=== PATIENT | male | born 1950 | race African-American/Black ===

== ENCOUNTER 2019-07-08 11:31 | Outpatient (CLI) | payer MEDICARE, SELFPAY ==
--- NOTE | ~2019-07-08 | CT_ITS ---
EXAMINATION: CT abdomen pelvis w con EXAM DATE: 07/08/2019 13:03 INDICATION: Right-sided abdominal pain. Right upper quadrant, right lower quadrant pain. TECHNIQUE: Spiral CT of the abdomen and pelvis was performed following intravenous injection of 100 m L Omnipaque 350. Axial, coronal and sagittal images were reviewed. The dose-length product (DLP) fo r this examination was 399.11 mGy-cm. The exposure was tailored according to patient size (auto mA e xposure control), and iterative reconstruction (ASIR) was used as additional dose reduction technique . There is no prior study for comparison. FINDINGS: There is moderate amount of nonspecific fat stranding superficial to the right lateral abdo lisa wall. There is a left adrenal gland lesion measuring 1.5 cm, probably an adenoma. Spleen, righ t adrenal gland, pancreas, liver are unremarkable. Gallbladder is unremarkable. No biliary obstruct ion. Portal and splenic veins are patent. Kidneys enhance symmetrically. There is no hydronephrosi s. There is a 3 mm left mid calyceal stone. There are several similar sized right calyceal stones. T he prostate is unremarkable. The bladder is unremarkable. There is no retroperitoneal or pelvic lym phadenopathy. Small umbilical fat-containing hernia. The appendix is normal. There is moderate scattered colonic diverticulosis. There is no adjacent inf lammatory change to suggest diverticulitis. The stomach and small bowel are unremarkable. There is e xpected amount of colonic stool. No free intraperitoneal gas. The heart is normal in size. There are no pericardial or pleural effusions. Small to moderate right pleural effusion with right basila r subsegmental atelectasis. There are no osteoblastic or osteolytic lesions identified. IMPRESSION: 1. Right lateral abdominal wall subcutaneous edema. Nonspecific. 2. Moderate scattered colonic diverticulosis. 3. Bilateral nephrolithiasis. 4. Left adrenal lesion probably adenoma. 5. Small to moderate right pleural effusion, adjacent subsegmental atelectasis. Reviewed, dictated and finalized at location B. 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 Right lateral abdominal wall subcutaneous edema. Nonspecific. 2. Moderate scattered colonic diverticulosis. 3. Bilateral nephrolithiasis. 4. Left adrenal lesion probably adenoma. 5. Small to moderate right pleural effusion, adjacent subsegmental atelectasis .
[2019-07-08 12:02] LABS: Hematocrit 40.8 % (42.0-52.0); Mean Corpuscular HGB Conc 31.9 g/dl (32-36); Mean Corpuscular Hemoglobin 30.3 pg (26-34); Mean Corpuscular Volume 95.1 fl (80-100); Mean Platelet Volume 10.2 fl (7.4-10.4); Platelet Count Result 284 k/mm3 (150-375); Red Blood Count 4.29 M/mm3 (4.6-6.20); Red Cell Distribution Width 13.3 % (11.5-14.5)
[2019-07-08 12:16] LABS: Alanine Aminotransferase 14 U/L (4-50); Albumin Level 4.2 g/dL (3.5-5.1); Alkaline Phosphatase 105 U/L (38-126); Aspartate Amino Transferase 21 U/L (17-59); Bilirubin,Total 0.6 mg/dL (0.2-1.3); Blood Urea Nitrogen 15 mg/dL (9-20); Calcium 9.4 mg/dL (8.4-10.2); Carbon Dioxide 31 mmol/L (22-30); Chloride 101 mmol/L (98-107); Estimated Glomerular Filt Rate > 60; Glucose 101 mg/dL (75-110); Potassium 4.6 mmol/L (3.4-5.0); Sodium 139 mmol/L (137-145)
[2019-07-08 12:55] LABS: Blood Urea Nitrogen 14 mg/dL (8-26); Estimated Glomerular Filt Rate > 60
== END 2019-07-08 11:32 | disposition home or self-care (01) ==
PROVIDERS: PCP Family Medicine; Visit Provider Family Medicine
DX: R10.9 Unspecified abdominal pain (principal); M79.89 Other specified soft tissue disorders; K57.90 Diverticulosis of intestine, part unspecified, without perforation or abscess without bleeding; N20.0 Calculus of kidney; E27.9 Disorder of adrenal gland, unspecified; J90 Pleural effusion, not elsewhere classified
CPT/HCPCS: 36415; 74177; 80053; 85027; Q9967

== ENCOUNTER 2020-12-16 13:33 | Outpatient (CLI) | payer MEDICARE, SELFPAY ==
--- NOTE | ~2020-12-16 | CT_ITS ---
EXAMINATION: CT lung screening DATE: 12/16/2020 13:58 INDICATION: Personal history of tobacco dependence, prior smoker with 30 pack year history TECHNIQUE: Computed tomography (CT) of the chest was performed without intravenous contrast. The dose -length product (DLP) was 90.30 mGy-cm. Automated exposure control and iterative reconstruction techn [employer] were employed. COMPARISON: 07/08/2019 FINDINGS: There is mild emphysema. No suspicious pulmonary nodules are identified. The lungs are free of acute opacities. There is no pleural effusion or pneumothorax. No pathologically enlarged thoraci c lymph nodes are identified. The heart size is normal. 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 There is a chronic calcified cystic area adjacent to the cardiac apex without signific ant change. There is a stable adenoma of the left adrenal gland. Nonobstructing right nephrolithiasis is noted. IMPRESSION: 1. Lung-RADS category 1: Negative. Continue annual screening with noncontrast low-dose chest CT in 12 months. Reviewed, dictated and finalized at location B. IMPRESSION: 1. Lung-RADS category 1: Negative. Continue annual screening with noncontrast l ow-dose chest CT in 12 months.
== END 2020-12-16 13:34 | disposition home or self-care (01) ==
LOC: ANHIMG 13:39
PROVIDERS: PCP Family Medicine; Visit Provider Nurse Practitioner Family
DX: Z12.2 Encounter for screening for malignant neoplasm of respiratory organs (principal); Z87.891 Personal history of nicotine dependence
CPT/HCPCS: 71271

== ENCOUNTER 2021-02-10 09:20 | Outpatient (CLI) | payer MEDICARE, SELFPAY ==
--- NOTE | ~2021-02-10 | US_ITS ---
EXAMINATION: US aorta [facility] DATE: 02/10/2021 09:58 INDICATION: Screening for abdominal aortic aneurysm. TECHNIQUE: Grayscale, color Doppler, and pulsed Doppler images of the aorta and common iliac arteries were obtained. COMPARISON: 07/08/2019 FINDINGS: The proximal aorta measures 2.1 cm AP diameter. The mid aorta measures 1.8 cm. The distal aorta measu res 1.8 cm. The right common iliac artery measures 1.2 cm. The left common iliac artery measures 1.4 cm. The visualized proximal to mid inferior vena cava is normal. IMPRESSION: 1. Normal caliber abdominal aorta. Reviewed, dictated and finalized at location A.
== END 2021-02-10 09:21 | disposition home or self-care (01) ==
LOC: ANHIMG 09:23
PROVIDERS: PCP Family Medicine; Visit Provider Family Medicine
DX: Z13.6 Encounter for screening for cardiovascular disorders (principal); F17.210 Nicotine dependence, cigarettes, uncomplicated
CPT/HCPCS: 76706

== ENCOUNTER 2021-10-13 13:45 | Outpatient (CLI) | payer MEDICARE, SELFPAY ==
--- NOTE | ~2021-10-13 | XR_ITS ---
XR knee LT min 4V 10/13/2021 14:08 INDICATION: Left knee pain PROCEDURE: 4 views left knee COMPARISON: No prior studies for comparison. FINDINGS: Fracture, dislocation or subluxation is not identified. No significant joint effusion. The soft tissues appear within normal limits. No foreign bodies are i dentified. IMPRESSION: 1: NO ACUTE BONE OR JOINT ABNORMALITY IDENTIFIED. Reviewed, dictated and finalized at location B.
== END 2021-10-13 13:46 | disposition home or self-care (01) ==
PROVIDERS: PCP Family Medicine; Visit Provider Physician Assistant
DX: M25.562 Pain in left knee (principal)
CPT/HCPCS: 73564

== ENCOUNTER 2024-04-09 05:45 | Emergency (ER) | payer MEDICARE, SELFPAY ==
[2024-04-09] VITALS (13 sets, daily range): BP systolic 149–166; BP diastolic 75–101; PULSE 20–104; RESP 16–18; TEMP 36.6; O2SAT 91–100
--- NOTE | ~2024-04-09 | XR_ITS ---
Clinical Indication: Shortness of breath PA and lateral views of the chest: Comparison: 05/29/2016 Findings: The lungs are clear, without evidence of focal consolidation or pleural effusion. Cardiome diastinal silhouette is within normal limits. Bones and soft tissues are unremarkable. Impression: Clear lungs. Possible COPD. Reviewed, dictated and finalized at location M. 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 Possible COPD.
--- NOTE | 2024-04-09 05:46 | ECG_ITS ---
Test Date: 2024-04-09 05:54:37 Measurements Intervals Ringle Rate: 100 P: 76 CT: 135 QRS: -48 QRSD: 88 T: 78 QT: 359 QTc: 465 Interpretive Statements SINUS TACHYCARDIA LEFT AXIS DEVIATION NONSPECIFIC ST & T-WAVE ABNORMALITY- ANTEROLAT/HIGH LAT LEADS BASELINE ARTIFACT- AVR, AVL, AVF, V4-V6 BORDERLINE ECG No previous ECG available for comparison Electronically Signed On 04-09-2024 07:51:16 STOCK CONTROL CLERK by Bryan Velasco D.O.
[2024-04-09 06:14] LABS: Basophils Absolute Auto 0.1 K/mm3 (0.0-0.1); Basophils Percent Auto 1.2 % (0.2-1.2); Eosinophils Absolute Auto 0.6 K/mm3 (0-0.3); Eosinophils Percent Auto 9.7 % (0-4.4); Hematocrit 41.1 % (42.0-52.0); Hemoglobin 14.1 g/dL (14.0-18.0); Immature Granulocyte Absolute 0.01 K/mm3 (0.00-0.031); Immature Granulocyte Percent A 0.2 % (0-0.5); Lymphocytes Absolute Auto 1.81 K/mm3 (0.9-3.2); Lymphocytes Percent Auto 31.4 % (18.3-44.2); Mean Corpuscular HGB Conc 34.3 g/dl (32-36); Mean Corpuscular Hemoglobin 32.6 pg (26-34); Mean Corpuscular Volume 95.1 fl (80-100); Mean Platelet Volume 10.5 fl (7.4-10.4); Monocytes Absolute Auto 0.4 K/mm3 (0.1-0.6); Monocytes Percent Auto 7.6 % (2.6-8.5); Neutrophils Absolute Auto 2.9 K/mm3 (1.3-6.7); Neutrophils Percent Auto 49.9 % (45.5-73.1); Platelet Count Result 238 k/mm3 (150-375); Red Blood Count 4.32 M/mm3 (4.6-6.20); Red Cell Distribution Width 13.3 % (11.5-14.5); White Blood Count 5.8 K/mm3 (4.5-10.0)
[2024-04-09 06:32] LABS: Alanine Aminotransferase 24 U/L (6-50); Albumin Level 4.5 g/dL (3.5-5.1); Alkaline Phosphatase 111 U/L (38-126); Anion Gap 10 mmol/L (4-12); Aspartate Amino Transferase 32 U/L (17-59); Bilirubin,Total 0.7 mg/dL (0.2-1.3); Blood Urea Nitrogen 19 mg/dL (9-20); Calcium 9.6 mg/dL (8.4-10.2); Carbon Dioxide 25 mmol/L (22-30); Chloride 105 mmol/L (98-107); Estimated CRCL calculation 74 ml/min; Estimated Glomerular Filt Rate > 60; Glucose 111 mg/dL (65-110); Potassium 4.1 mmol/L (3.4-5.0); Sodium 140 mmol/L (137-145)
[2024-04-09] MEDS: IPRATROPIUM 0.5 MG/ALBUTEROL SULFATE 2.5 MG AMPUL.NEB 3 ML INHALATION (06:33)
--- NOTE | 2024-04-09 06:59 | ED_ITS ---
HPI - SOB/Dyspnea General Chief Complaint: Shortness of Breath/Dyspnea Stated Complaint: I cannot breath; 4 days Time Seen by Provider: 04/09/24 06:56 Source: patient and family ( ) Mode of arrival: ambulatory Limitations: no limitations History of Present Illness HPI Narrative: patient presents with report of increasing shortness of breath over the past 4 days. He has had a cough productive of some mucus that he feels draining. His chest feels tight. No fevers or chills and otherwise no miguel chest pain. While living in [place] for a few years his primary care physician there told him that he had mild COPD and had prescribed breads treat. Otherwise patient is not on supplemental oxygen at home. Few months ago, he had difficulty breathing but this was felt to be secondary to COVID. No prior BiPAP for intubation. His /bed partner notes that his breathing seems to be worsening. They to go home her COVID test that was negative and a been trying Mucinex. He ran out of his bridge tree and did not have any more refills. He is set to reestablish with his previous primary care physician here, Dr. Sonido Rinaldi to get both a refill of his press Treanda referral to a timber management assistant and that appointment is coming up on Saturday. Denies loss of appetite. Related Data Allergies Allergy/AdvReac Type Severity Reaction Status Date / Time iodine Allergy Unknown Nausea and Verified 10/01/23 14:33 Vomiting shellfish derived Allergy Unknown Nausea and Verified 10/01/23 14:33 Vomiting SHELLFISH Allergy Mild Nausea and Uncoded 10/01/23 14:33 Vomiting PMFSH Past Medical History Medical History Allergic rhinitis BPH loc w/o ur obs/LUTS COPD (chronic obstructive pulmonary disease) Essential hypertension Positive PPD Pure hypercholesterolemia Surgical History Surgical History History of sinus surgery Status post hernia repair Family History Family History Mother Hypertension Sibling Family history of diabetes mellitus in first degree relative Social History Social History Social History: enjoys playing golf Years smoked: 30 Smoking status: Current every day smoker Tobacco type: cigarettes Second hand tobacco smoke exposure: Yes Alcohol intake: never Substance use: never Substance use type: does not use Living arrangements: with family Additional living arrangements comments: Lived in [place] for several years before moving back August 2023 Occupation/Education: occupation 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 HEAD: Normocephalic, atraumatic. EYES: Non injected, non icteric ENT: Nares clear, no rhinorrhea or epistaxis. NECK: Supple. CHEST: Coarse bilateral inspiratory wheezes but without stridor. Good air movement otherwise. HEART: Mildly Tachycardic rate and rhythm. . ABDOMEN: Soft, nondistended. EXTREMITIES: Normal range of motion. No bilateral lower extremity edema. SKIN: Warm, dry, no rash. NEURO: No focal deficits. Alert and oriented x3. PSYCH: Normal mood and affect. Course Vital Signs Vital signs: Vital Signs Pulse Rate 104 H 04/09/24 05:48 Respiratory Rate 16 04/09/24 05:48 Blood Pressure 159/101 H 04/09/24 05:48 Pulse Oximetry 91 04/09/24 05:48 Oxygen Delivery Room Air 04/09/24 05:48 Temperature 98 F 04/09/24 07:35 Pulse Rate 81 04/09/24 10:07 Respiratory Rate 18 04/09/24 10:07 Blood Pressure 151/79 H 04/09/24 10:07 Pulse Oximetry 98 04/09/24 10:07 Oxygen Delivery Room Air 04/09/24 07:00 MDM - SOB/Dyspnea MDM Narrative Medical decision making narrative: Patient presents with increasing shortness of breath over the past several days. He had been previously told that he had mild COPD. In the emergency department he is afebrile with vital signs notable for initial tachycardia and hypertension. The tachycardia resolves. he is also initially listed as hypoxic but then with resolution. Will initiate COPD treatment with supplemental O2 available PRN. Patient is reassessed at approximately 8:10 a.m.. He states his breathing is improved. On auscultation, he has good aeration with both inspiratory and expiratory wheezes and coarse breath sounds. Not tachypneic and otherwise resting comfortably. Another albuterol nebulized treatment ordered. BAP-65 Score for Acute Exacerbation of COPD (predicts mortality in acute COPD exacerbation) BUN >/=25 mg/dL (No 0, Yes +1): 0 AMS (No 0, Yes +1):0 Pulse >/=109 beats/min (No 0, Yes +1):0 Age, years: 41-64 versus >/= 65: >65 Result: Class II, BAP 0, Routine management of COPD exacerbation. 1% in hospital mortality. 0.2% requiring intubation within 48 hours. Dimer normal so will not pursue further imaging to assess for pulmonary embolism. Overall, it appears that his pulmonary status is well controlled. Will defer prescribing Breztri to patient's PCP as he is set to see him in 4 days. Given the cardinal change in typically having no cough at rest but now currently having 1, will also add antibiotic in addition to the course of steroids and a refill of albuterol inhaler. First dose given in the emergency department. Differential Diagnosis Differential diagnosis: Likely acute exacerbation of chronic obstructive airways disease, congestive heart failure, community acquired pneumonia, asthma with exacerbation, pulmonary embolism and other ( acute viral syndrome) Lab Data Attestation: I reviewed the patient's lab results. 04/09/24 05:57 04/09/24 05:57 Labs: Lab Results 04/09/24 04/09/24 04/09/24 Range/Units 05:57 05:57 06:34 WBC 5.8 (4.5-10.0) K/mm3 RBC 4.32 L (4.6-6.20) M/mm3 Hgb 14.1 (14.0-18.0) g/dL Hct 41.1 L (42.0-52.0) % MCV 95.1 (80-100) fl MCH 32.6 (26-34) pg MCHC 34.3 (32-36) g/dl RDW 13.3 (11.5-14.5) % Plt Count 238 (150-375) k/mm3 MPV 10.5 H (7.4-10.4) fl Immature Gran % (Auto) 0.2 (0-0.5) % Neut % (Auto) 49.9 (45.5-73.1) % Lymph % (Auto) 31.4 (18.3-44.2) % Rawlins % (Auto) 7.6 (2.6-8.5) % Eos % (Auto) 9.7 H (0-4.4) % Baso % (Auto) 1.2 (0.2-1.2) % Lymph # (Auto) 1.81 (0.9-3.2) K/mm3 Rawlins # (Auto) 0.4 (0.1-0.6) K/mm3 Eos # (Auto) 0.6 H (0-0.3) K/mm3 Baso # (Auto) 0.1 (0.0-0.1) K/mm3 Abs Immat Gran (auto) 0.01 (0.00-0.031) K/mm3 Absolute Neuts (auto) 2.9 (1.3-6.7) K/mm3 Absolute Nucleated RBC 0.000 (0.0-0.012) K/mm3 Nucleated RBC % 0.0 (0.0-0.2) % D-Dimer 0.34 (<0.48) ug/mL Sodium 140 (137-145) mmol/L Potassium 4.1 (3.4-5.0) mmol/L Chloride 105 (98-107) mmol/L Carbon Dioxide 25 (22-30) mmol/L Anion Gap 10 (4-12) mmol/L BUN 19 (9-20) mg/dL Creatinine 0.80 (0.7-1.3) mg/dL Estim Creat Clear Calc 74 ml/min Estimated GFR > 60 (59 - ) Glucose 111 H (65-110) mg/dL Calcium 9.6 (8.4-10.2) mg/dL Magnesium 1.8 Cancelled (1.6-2.3) mg/dL Total Bilirubin 0.7 (0.2-1.3) mg/dL AST 32 (17-59) U/L ALT 24 (6-50) U/L Alkaline Phosphatase 111 (38-126) U/L NT-Pro-B Natriuret Pep < 20 (19.9-100) pg/mL Total Protein 9.0 H (6.3-8.2) g/dL Albumin 4.5 (3.5-5.1) g/dL Influenza A (RT-PCR) Negative (Negative) Influenza B (RT-PCR) Negative (Negative) RSV (RT-PCR) Negative (Negative) SARS-CoV-2 RNA (RT-PCR) Negative (Negative) ABG Data ABG results: 04/09/24 07:25 Puncture Site Right radial ABG pH 7.420 ABG pCO2 37.7 ABG pO2 60.2 L ABG PO2/FiO2 Ratio 2.87 ABG HCO3 23.9 ABG O2 Saturation 91.7 L ABG O2 Content 18.3 ABG Base Excess -0.3 A-a Gradient 44.4 Oxyhemoglobin 90.4 Total Hemoglobin 14.4 O2 Delivery Device Not Reportable O2 Liters/Min Not Reportable FiO2 21 pH 7.42, pCO2 37.7, PO2 60.2, HC03 23.9 Attestation: I personally reviewed and interpreted this ABG as follows: Interpretation: chronic respiratory alkalosis with secondary metabolic alkalosis Imaging Data Radiologist's impression: Impressions Chest X-Ray 04/09/24 06:44 Impression: Clear lungs. Possible COPD. ECG Data EKG #1: Attestation: I personally reviewed and interpreted this ECG as follows: ECG completion date: 04/09/24 ECG completion time: 05:54 Interpretation: Sinus tachycardia at a rate of 100 beats per minute. IL interval 135. QRS 88. QT/QTC 359/416. Left axis deviation (QRS is positive with dominant R wave in Lead I; QRS is negative with dominant S wave in leads II, III, and aVF). Slight ST depressions versus upslurring throughout inferior leads as well as precordial leads V3 through V6. good R-wave progression across the precordial leads. Discharge Plan Discharge Clinical Impression: COPD exacerbation Patient Disposition: Home, Self-Care Condition: Stable Instructions: Antibiotic Form, COPD (Chronic Obstructive Pulmonary Disease) (DC) Additional Instructions: Keep your already scheduled upcoming appointment with primary care physician Dr. Rinaldi. If there are any complications or issues in obtaining a referral to a timber management assistant from him, the contact information for 1 is listed below. take a combination of albuterol inhaler, steroids, and short course of antibiotic. return to the emergency department with any new or worsening symptoms. Prescriptions: New albuterol sulfate 90 mcg/actuation HFA aerosol inhaler 1 inh inhalation QID PRN (Reason: shortness of breath or wheezing) Qty: 6.7 0RF azithromycin 250 mg tablet 250 mg PO DAILY 4 Days Qty: 4 0RF Rx Instructions: start on day 2 of therapy (i.e. 04/10/24); already received first dose in ED 04/09 prednisone 20 mg tablet 40 mg PO DAILY Qty: 10 0RF Rx Instructions: starting 04/10; received first dose in ED 04/09 albuterol sulfate 90 mcg/actuation HFA aerosol inhaler 1 inh inhalation QID PRN (Reason: shortness of breath or wheezing) Qty: 6.7 0RF azithromycin 250 mg tablet 250 mg PO DAILY 4 Days Qty: 4 0RF Rx Instructions: start on day 2 of therapy prednisone 20 mg tablet 40 mg PO DAILY 5 Days Qty: 10 0RF Rx Instructions: start 04/10; received first dose 04/09 No Action fexofenadine [Nayeli Allergy] 180 mg tablet 180 mg PO DAILY Qty: 30 5RF tamsulosin [Flomax] 0.4 mg capsule 0.4 mg PO DAILY Qty: 30 2RF atorvastatin 20 mg tablet See Rx Instructions .ROUTE .COMPLEX Qty: 90 2RF Dose Instruction: TAKE 1 TABLET BY MOUTH EVERY NIGHT AT BEDTIME Rx Instructions: TAKE 1 TABLET BY MOUTH EVERY NIGHT AT BEDTIME fluticasone propionate 50 mcg/actuation spray,suspension 1 spray NASAL DAILY Qty: 1 2RF Rx Instructions: administer into each nostril amlodipine 5 mg tablet 5 mg PO DAILY Qty: 90 2RF albuterol sulfate 90 mcg/actuation HFA aerosol inhaler 1 inh inhalation Q4H PRN (Reason: shortness of breath or wheezing) Qty: 8.5 2RF Follow-up/Referrals: Sonido Rinaldi MD [Primary Care Provider] - Sree Forrester MD [Physician] - ( Pulmonology) Stand Alone Forms: Work/School Release IP Time of Disposition: 09:41
[2024-04-09 07:15] LABS: Influenza A QL RT-PCR Negative (Negative); Influenza B QL RT-PCR Negative (Negative); RSV RNA, RT-PCR Negative (Negative); SARS-CoV-2 RNA PCR Negative (Negative)
[2024-04-09] MEDS: ALBUTEROL SULFATE NEB 2.5 MG/3 ML INH INHALATION ×2 (07:28→08:23)
--- NOTE | 2024-04-09 07:35 | PC.NURSE ---
RT at bedside
[2024-04-09 07:37] LABS: Alveolar/Arterial O2 Gradient 44.4 mmHg; Base Excess ABG -0.3 mEq/l (+/-2.0); Fractional Inspired Oxygen 21 %; HCO3 ABG 23.9 mEq/l (22.0-26.0); Oxygen Content ABG 18.3 %vol (16.0-22.0); Oxygen Saturation ABG 91.7 % (95.0-100.0); Oxyhemoglobin 90.4 % THb (90.0-100.0); PCO2 ABG 37.7 mmHg (35.0-45.0); PO2 ABG 60.2 mmHg (80.0-100.0); PO2 FiO2 Ratio Arterial Blood 2.87 %; Total Hemoglobin 14.4 g/dL (12.0-18.0)
[2024-04-09] MEDS: MAGNESIUM SULF 1 GM/D5W 100 ML 1 GM/100 ML BAG IVPB (07:37)
[2024-04-09] MEDS: methylPREDNISolone SOD SUCC 125 MG VIAL IV PUSH (07:38)
[2024-04-09 08:08] LABS: D Dimer 0.34 ug/mL (<0.48)
[2024-04-09 08:33] LABS: Modified Allen's Test Pass; Site Drawn RIGHT RADIAL
[2024-04-09 09:28] LABS: Magnesium 1.8 mg/dL (1.6-2.3)
[2024-04-09 09:29] LABS: NT Pro B Type Natriuretic Pept < 20 pg/mL (19.9-100)
[2024-04-09] MEDS: AZITHROMYCIN 250 MG TABLET 500 MG PO (10:00)
== END 2024-04-09 10:09 | disposition home or self-care (01) ==
PROVIDERS: Emergency Medicine; Emergency Provider Student in an Organized Health Care Education/Training Program; PCP Family Medicine
DX: J44.1 Chronic obstructive pulmonary disease with (acute) exacerbation (principal); Z20.822 Contact with and (suspected) exposure to COVID-19; J44.9 Chronic obstructive pulmonary disease, unspecified; I10 Essential (primary) hypertension; E78.00 Pure hypercholesterolemia, unspecified; F17.210 Nicotine dependence, cigarettes, uncomplicated
CPT/HCPCS: 36415; 36600; 71046; 80053; 82805; 83735; 83880; 85018; 85025; 85380; 87637; 93005; 94640; 96365; 96375; 99284; A9270; J2919; J3475

== ENCOUNTER 2024-04-29 10:25 | Outpatient (CLI) | payer MEDICARE, SELFPAY ==
--- NOTE | 2024-05-04 20:35 | WPDPFTINT ---
PFT Procedure Performed PFT Procedure Performed Spirometry with Pre/Post Bronchodilator Plethysmography (Lung Vol) Diffusing Cap (DLCO) Flow Vol Loop PFT Interpretation DOS: 04/29/2024 REQUESTING: Sonido Rinaldi MD REASON FOR TESTING: COPD PULMONARY FUNCTION TESTS Repeatability of spirometry FEV1 maneuver pre-bronchodilator is Grade B. Repeatability of spirometry FEV1 maneuver post-bronchodilator is Grade A. Spirometry: The pre-bronchodilator FEV1 is 1.72 L, 65%, decreased. The pre-bronchodilator FVC is 2.88 L, 82%, normal. The FEV1/FVC ratio is 60%, decreased. After bronchodilator, the FEV1 is 1.70 L, 64%, -1%. The FVC is 2.93 L, 84%, +2%. The FEV1/FVC ratio is 58% decreased consistent with airflow obstruction. Lung volumes: The total lung capacity is 6.81 L, 110%, normal. The residual volume is 2.99 L, 128%, normal. The RV/TLC is 44%. Airway resistance is increased. Diffusion: DLCO is 17.1, 67%, mildly decreased. The DLCO/VA is 3.67, 95%, normal. Flow volume loop: The flow volume loop is this study shows coving of the espiratory limb. IMPRESSION: This study shows a mild obstructive ventilatory impairment without response to bronchodilator, normal lung volumes, and a mild diffusion impairment which normalizes for alveolar volume. Lack of response to bronchodilator should not preclude use if clinically indicated. There are no prior studies to compare. Cecilia Ruiz MD
== END 2024-04-29 10:26 | disposition home or self-care (01) ==
LOC: ANHPFT 10:25
PROVIDERS: PCP Family Medicine; Visit Provider Family Medicine
DX: J44.9 Chronic obstructive pulmonary disease, unspecified (principal)
CPT/HCPCS: 94060; 94726; 94729

== ENCOUNTER 2024-05-07 12:10 | Outpatient (CLI) | payer MEDICARE, SELFPAY ==
[2024-05-07 12:28] LABS: Add Urine Microscopic? NO; Appearance Urine Clear (Clear); Bilirubin Urine Negative (Negative); Blood Urine Negative (Negative); Color Urine Yellow (Yellow); Glucose Urine UA Negative (Negative); Ketones Urine Negative (Negative); Leukocyte Esterase Ur Negative LEU/UL (Negative); Nitrate Urine Negative (Negative); Protein Urine Negative (Negative); Specific Grav Ur 1.019 (1.001-1.035); pH Urine 5.5 (5.0-9.0)
== END 2024-05-07 12:11 | disposition home or self-care (01) ==
PROVIDERS: PCP Family Medicine; Visit Provider Family Medicine
DX: N39.0 Urinary tract infection, site not specified (principal)
CPT/HCPCS: 81003

== ENCOUNTER 2024-11-05 07:55 | Outpatient (CLI) | payer MEDICARE, SELFPAY ==
--- NOTE | ~2024-11-05 | CT_ITS ---
CT Scan of the Chest without Contrast: Clinical Indication: Lung cancer screening, nicotine dependence Technique: Contiguous sections were acquired throughout the chest without intravenous contrast. Dose reduction technique was used on this scan by utilizing automated exposure control and iterative recon struction technique. The dose-length product (DLP) was 112.79 mGy-cm. COMPARISON: 12/16/2020 Findings: There is no evidence of any significant mediastinal, hilar or axillary lymphadenopathy. Aberrant righ t subclavian artery noted. The mediastinal soft tissues otherwise appear normal. There is no evidence of pleural or pericardial effusion. The lungs are clear. No pulmonary nodules or infiltrates are noted. Images through the upper abdomen reveal low-density left adrenal adenoma and nonobstructing right bre al stones. Impression: Lung RADS 1: Negative. 12 month follow-up screening CT advised. Reviewed, dictated and finalized at [facility]. Impression: Lung RADS 1: Negative. 12 month follow-up screening CT advised.
--- OUTSIDE RECORDS SUMMARY | 2024-11-05 08:02 | XMS_ITS | Encounter Summary ---
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 Name Role Phone Ethel Mocknn Primary Care Provider Sonido Rinaldi MD Primary Care Provider [phone] Encounter Details Date Type Department Care Team (Late st Contact Info) Description 04/09/2013 [facility] Mitesh Richards MD [address] [facility] [address] [place] [address] Social History Tobacco Use Types Packs/Day Years Used Date Smoking Tobacco: Every Day Cigarettes Comments:3.5 weekly Alcohol Use Standard Drinks/Week Comments No 0 (1 standard drink = 0.6 oz pur e alcohol) Sex and Gender Information Value Date Recorded Sex Assigned at Not on file 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
--- OUTSIDE RECORDS SUMMARY | 2024-11-05 08:02 | XMS_ITS | Clinical Summary ---
Author Organization [facility] [employer] Address [address] [place] [address] Care Team Providers Care Erp Engineer Name Role Phone Sonido Rinaldi MD Primary Care Provider [phone] Source Comments [facility] [employer],non-owned Affiliates and Associated Physician Practices is amultiple site organization consisting of ambulatory clinics and hospital sitesin [place], [place], [place] and [place]. This disclosure is being madepursuant to the Care Everywhere program and may not contain all information available regarding this patient. Last updated 18.[facility] [employer] Allergies No known active allergies Medications * Be aware that medications may not be up to date on this document. Alwaysverify current medications with the patient. BENADRYL ALLERGY PO Take by mouth as needed Active ibuprofen (MOTRIN) 400 MG tablet Take 1 Tab by mouth every 6 hours as needed for Pain 20 Tab 07/14/2016 Active ibuprofen (MOTRIN) 400 MG tablet Take 1 Tab by mouth every 6 hours as needed for Pain 20 Tab 07/14/2016 Active Active Problems Problem Noted Date Diagnosed Date PE (physical exam) 02/23/2009 Prostatic nodule 02/23/2009 Allergic rhinitis Overview (02/23/2009): Chronic seasonal Immunizations Immunization Administration Dates Next Due TDAP (7yrs+) 07/14/2016 Social History Tobacco Use Types Packs/Day Years Used Date Smoking Tobacco: Every Day Cigarettes Comments:3.5 weekly Alcohol Use Standard Drinks/Week Comments No 0 (1 standard drink = 0.6 oz pur e alcohol) Sex and Gender Information Value Date Recorded Sex Assigned at Not on file Legal Sex Male 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 Gender Identity Not on file Sexual Orientation Not on file Last Filed Vital Signs Vital Sign Reading Time Taken Comments Blood Pressure 141/81 07/14/2016 5:29 AM NEW ORDER CLERK Pulse 85 07/14/2016 5:29 AM NEW ORDER CLERK Temperature 36.4 C (97.6 F) 07/14/2016 5:29 AM NEW ORDER CLERK Respiratory Rate 18 07/14/2016 5:29 AM NEW ORDER CLERK Oxygen Saturation 100% 07/14/2016 5:29 AM NEW ORDER CLERK Inhaled Oxygen Concentration - - Weight 81.6 kg (180 lb) 07/14/2016 2:31 AM NEW ORDER CLERK Height 175.3 cm (5' 9) 07/14/2016 2:31 AM NEW ORDER CLERK Body Mass Index 26.58 07/14/2016 2:31 AM NEW ORDER CLERK Plan of Treatment Health Maintenance Due Date Last Done Comments COLOGUARD (AGES 45-75) - COL ON CA SCREENING 1950 COLON MONITORING 1950 COLONOSCOPY - COLON CA SCREENING 1950 CT COLONOGRAPHY - COLON CA SCREENING 1950 Colorectal Cancer Screening 1950 FIT - COLON CA SCREENING 1950 FLEX SIG - COLON CA SCREENING 1950 HEPATITIS C SCREENING 03/04/1969 PNEUMOCOCCAL VACCINE 50+ (1 of 1 - PCV) 2001 ZOSTER VACCINE (1 of 2) 2001 LIPID TESTING 10/14/2013 10/14/2008 AAA SCREENING 2016 COVID-19 VACCINE ( - 2023-2 5 season) 2024 DEPRESSION SCREENING 05/27/2024 INFLUENZA VACCINE (Season Ended) 2025 Respiratory Syncytial Virus (RSV) Vaccine Pt: or over 60 yrs (1 - 1-dose 75+ series) 2026 DTAP/TDAP/TD VACCINES (2 - T d or Tdap) 07/14/2026 07/14/2016 HEPATITIS B VACCINE Aged Out No longe r eligible based on patient's age to complete this topic HIB VACCINE Aged Out No longer eligi ble based on patient's age to complete this topic HPV VACCINE Aged Out No longer eligi ble based on patient's age to complete this topic MENINGOCOCCAL (Group B) VACC INE SHARED DECISION-MAKING Aged Out No longer eligibl e based on patient's age to complete this topic MENINGOCOCCAL GROUPS A/C/Y/W VACCINE Aged Out No longer eligible b ased on patient's age to complete this topic Procedures Procedure Name Priority Date/Time Associated Diagnosis Comments LIPID PROFILE W LDL/HDL RATIO 10/14/2008 10:27 AM CDT from Last 3 Months or Most Recently Relevant to Health Maintenance Results * (ABNORMAL) LIPID PROFILE W LDL/HDL (PO REF LAB) (10/14/2008 10:27 AM CDT) Cholesterol 201(H) 100 - 199 mg/dL [facility] ACCOUNT BILL Triglycerides 49 0 - 149 mg/dL [facility] ACCOUNT BILL HDL Cholesterol 63 >39 mg/dL [facility] ACCOUNT BILL Comment: According to ATP-III Guidelines, HDL-C >59 mg/dL is considered a negative risk factor for CHD. VLDL Calculated 10 5 - 40 mg/dL [facility] ACCOUNT BILL LDL Calculated 128(H) 0 - 99 mg/dL [facility] ACCOUNT BILL Comment [facility] ACCOUNT BILL Comment: If initial LDL-cholesterol result is >100 mg/dL, assess for risk factors. LDL/HDL Ratio 2.0 0.0 - 3.6 ratio units [facility] ACCOUNT BILL 10/14/2008 10:2 7 AM CDT 10/14/2008 6:13 PM CDT Narrative Resulting Agency Comment [facility] [place] [address] [facility] [id number] Gualberto Mock DO LAB - CHEMISTRY ORDERABLES Fin al Result [facility] ACCOUNT BILL [address] [place] [address] from Last 3 Months or Most Recently Relevant to Health Maintenance Insurance [facility] MANAGED MEDICARE ADV MANAGED MEDICARE ADV TPL THIRD [employer]IANCE PARTY LIABILITY Constitution Party Liability [facility] MANAGED MEDICARE ADV Care Teams Erp Engineer Relationship Specialty Start Date End Date Sonido Rinaldi MD [address] [place] [address] PCP - General Family Medicine 07/14/16
--- OUTSIDE RECORDS SUMMARY | 2024-11-05 08:02 | XMS_ITS | Clinical Summary ---
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 Gender Identity Not on file Sexual Orientation Not on file Plan of Treatment Health Maintenance Due Date Last Done Comments Hepatitis C Virus (HCV) Screening 1950 TdaP Immunization 1950 Colonoscopy 1996 Colorectal Cancer Screening 1996 Cologuard 2001 Immunochemical Fecal Occult Blood 2001 Pneumococcal Immunization (5 0+ years) (1 of 1 - PCV) 2001 Zoster Immunization (1 of 2) 2001 Influenza Immunization (#1) 2024 03/10/2021 SARS-COV-2 Immunization ( season) 2024 03/25/2021, 08/06/2020, 07/09/2020 Respiratory Syncytial Virus (RSV) Immunization (Adult) (1 - 1-dose 75+ series) 2026 Hepatitis B Immunization Aged Out No longer eligible based on patient's age to complete this topic Meningococcal Immunization (ACWY) Aged Out No longer eligible b ased on patient's age to complete this topic Rotavirus Immunization Aged Out No lo nger eligible based on patient's age to complete this topic
== END 2024-11-05 07:56 | disposition home or self-care (01) ==
PROVIDERS: PCP Family Medicine; Visit Provider Family Medicine
DX: Z12.2 Encounter for screening for malignant neoplasm of respiratory organs (principal); Z87.891 Personal history of nicotine dependence
CPT/HCPCS: 71271

== ENCOUNTER 2024-12-07 08:49 | Outpatient (CLI) | payer MEDICARE, SELFPAY ==
--- NOTE | ~2024-12-07 | US_ITS ---
ULTRASOUND ANKLE BRACHIAL INDEX Ordering provider: Sonido Rinaldi MD History: . I73.9 - Peripheral vascular disease, unspecified . Comparison: None. FINDINGS: Right brachial systolic blood pressure: 154 mmHg Left brachial systolic blood pressure: 160 mmHg Right ankle systolic blood pressure: 99 mmHg Left ankle systolic blood pressure: 172 mmHg Right ankle/arm index (HERON): 0.62. Left ankle/arm index (HERON): 1.08 Note regarding HERON: --Normal= 1.0 or slightly greater. --Claudication (moderate stenosis or occlusive state)= 0.6 to 0.9. --Rest pain (severe occlusive states)= 0.5 or less. IMPRESSION: Moderate to severe stenosis on the right side. Clinical correlation and further evaluation advised. Normal left HERON. Reviewed, dictated and finalized at location A.
--- OUTSIDE RECORDS SUMMARY | 2024-12-07 08:55 | XMS_ITS | Clinical Summary ---
Author Organization [facility] Address [address] [facility] [place] [address] Care Team Providers Care Lead Ios Developer Name Role Phone Sonido Rinaldi MD Primary Care Provider [phone] Source Comments [facility],non-owned Affiliates and Associated Physician Practices is amultiple site organization consisting of ambulatory clinics and hospital sitesin [place], [place], [place] and [place]. This disclosure is being madepursuant to the Care Everywhere program and may not contain all information available regarding this patient. 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 Gender Identity Not on file Sexual Orientation Not on file Last Filed Vital Signs Vital Sign Reading Time Taken Comments Blood Pressure 141/81 07/14/2016 5:29 AM BAND STRAIGHTENER Pulse 85 07/14/2016 5:29 AM BAND STRAIGHTENER Temperature 36.4 C (97.6 F) 07/14/2016 5:29 AM BAND STRAIGHTENER Respiratory Rate 18 07/14/2016 5:29 AM BAND STRAIGHTENER Oxygen Saturation 100% 07/14/2016 5:29 AM BAND STRAIGHTENER Inhaled Oxygen Concentration - - Weight 81.6 kg (180 lb) 07/14/2016 2:31 AM BAND STRAIGHTENER Height 175.3 cm (5' 9) 07/14/2016 2:31 AM BAND STRAIGHTENER Body Mass Index 26.58 07/14/2016 2:31 AM BAND STRAIGHTENER Plan of Treatment Health Maintenance Due Date [...] 10/14/2013 10/14/2008 AAA SCREENING 2016 COVID-19 VACCINE (1 - 2023-2 5 season) 2024 DEPRESSION SCREENING 05/27/2024 INFLUENZA VACCINE (#1) 2025 Respiratory Syncytial Virus (RSV) Vaccine Pt: [...] PM CDT Narrative Resulting Agency Comment [facility] [place] [address] [facility] [id number] Gualberto Mock DO LAB - CHEMISTRY ORDERABLES Fin al Result [facility] ACCOUNT BILL [address] [place] [address] from Last 3 Months or Most Recently Relevant to Health Maintenance Insurance [facility] MANAGED MEDICARE ADV MANAGED MEDICARE ADV * Guarantor: Sarah Parmar Account Type Relation to Patient Date of Phone Billing Address Third [employer] Party Liability Self [address] [place] [address] TPL THIRD [employer] LIABILITY Alliance Party Liability [facility] MANAGED MEDICARE ADV Care Teams Lead Ios Developer Relationship Specialty Start Date End Date Sonido Rinaldi MD [address] [place] [address] PCP - General Family Medicine 07/14/16
--- OUTSIDE RECORDS SUMMARY | 2024-12-07 08:55 | XMS_ITS | Clinical Summary ---
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
--- OUTSIDE RECORDS SUMMARY | 2024-12-07 08:55 | XMS_ITS | Clinical Summary ---
Author Organization [facility] Address [address] [place] [address] Care Team Providers Care Oil Gas And Pipe Tester Name Role Phone Sonido Rinaldi MD Primary Care Provider [phone] Allergies No known active allergies Medications azithromycin 250 MG tablet Take 2 tablets by mouth on day one then 1 daily for four days. 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 Gender Identity Not on file Sexual Orientation Not on file Last Filed Vital Signs Vital Sign Reading Time Taken Comments Blood Pressure 160/80 06/30/2019 12:11 AM ENVIRONMENT ARTIST Pulse 89 06/29/2019 9:05 PM ENVIRONMENT ARTIST Temperature 36.8 C (98.2 F) 06/29/2019 9:05 PM ENVIRONMENT ARTIST Respiratory Rate 18 06/29/2019 9:05 PM ENVIRONMENT ARTIST Oxygen Saturation 100% 06/29/2019 9:05 PM ENVIRONMENT ARTIST Inhaled Oxygen Concentration - - Weight 79.4 kg (175 lb) 06/29/2019 9:05 PM ENVIRONMENT ARTIST Height 175.3 cm (5' 9) 06/29/2019 9:05 PM ENVIRONMENT ARTIST Body Mass Index 25.84 06/29/2019 9:05 PM ENVIRONMENT ARTIST Plan of Treatment Health Maintenance Due Date Last Done Comments Colorectal Cancer Screening Colonoscopy (10 Years) 1950 Hepatitis C 1969 Pneumococcal Vaccine: 50+ Ye ars (1 of 2 - PCV) 1970 Zoster Vaccines (1 of 2) 2001 Annual Medicare Wellness Visit 2016 COVID-19 Vaccine ( - 2023-2 5 season) 2024 RSV Immunization or 60+ Years (1 - 1-dose 75+ series) 2026 DTaP, Tdap and Td Vaccines ( 2 - Td or Tdap) 07/14/2026 07/14/2016 Meningococcal B Vaccine Aged Out No l onger eligible based on patient's age to complete this topic Meningococcal Vaccine Aged Out No yuly david eligible based on patient's age to complete this topic RSV Immunizations Under 20 Months Aged Out No longer eligible based on patient's age to complete this topic Insurance [facility] Care Teams Oil Gas And Pipe Tester Relationship Specialty Start Date End Date Sonido Rinaldi MD [address] [place] [address] PCP - General FAMILY PRACTICE 06/29/19
--- OUTSIDE RECORDS SUMMARY | 2024-12-07 08:55 | XMS_ITS | Encounter Summary ---
Author Organization [facility] Address [address] [place] [address] Care Team Providers Care Marketing Content Coordinator Name Role Phone Ethel Mocknn Primary Care Provider [phone] Sonido Rinaldi MD Primary Care Provider [phone] Encounter Details Date Type Department Care Team (Late st Contact Info) Description 04/09/2013 [facility] Mitesh Richards MD [address] [facility] [address] [place] [address] Social History Tobacco Use Types Packs/Day Years Used Date Smoking Tobacco: Every Day Cigarettes Comments:3.5 weekly Alcohol Use Standard Drinks/Week Comments No 0 (1 standard drink = 0.6 oz pur e alcohol) Sex and Gender Information Value Date Recorded Sex Assigned at Not on file 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
== END 2024-12-07 08:50 | disposition home or self-care (01) ==
PROVIDERS: PCP Family Medicine; Visit Provider Family Medicine
DX: I70.201 Unspecified atherosclerosis of native arteries of extremities, right leg (principal)
CPT/HCPCS: 93922

== ENCOUNTER 2025-04-19 00:47 | Day surgery (SDC) | payer MEDICARE, SELFPAY ==
[2025-04-07 11:58] VITALS: BMI 25.1
--- OUTSIDE RECORDS SUMMARY | 2025-04-19 00:50 | XMS_ITS | Encounter Summary ---
Author Organization [facility] Address [address] [place] [address] Care Team Providers Care Telephone Plant Power Operator Name Role Phone Ethel Mocknn Primary Care Provider [phone] Sonido Rinaldi MD Primary Care Provider [phone] Encounter Details Date Type Department Care Team (Late st Contact Info) Description 04/09/2013 [facility] Mitesh Richards MD [address] [facility] [address] [place] [address] Social History Tobacco Use Types Packs/Day Years Used Date Smoking Tobacco: Every Day Cigarettes Comments:3.5 weekly Alcohol Use Standard Drinks/Week Comments No 0 (1 standard drink = 0.6 oz pur e alcohol) Sex and Gender Information Value Date Recorded Sex Assigned at Not on file 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
--- OUTSIDE RECORDS SUMMARY | 2025-04-19 00:50 | XMS_ITS | Clinical Summary ---
Author Organization [facility] Address [address] [place] [address] Care Team Providers Care Sap Portal Consultant Name Role Phone Sonido Rinaldi MD Primary Care Provider [phone] Allergies No known active allergies Medications azithromycin [...] on file Legal Sex Male 9:02 PM LUNCHROOM MONITOR Gender Identity Not on file Sexual Orientation Not on file Last Filed Vital Signs Vital Sign Reading Time Taken Comments Blood Pressure 160/80 06/30/2019 12:11 AM LUNCHROOM MONITOR Pulse 89 06/29/2019 9:05 PM LUNCHROOM MONITOR Temperature 36.8 C (98.2 F) 06/29/2019 9:05 PM LUNCHROOM MONITOR Respiratory Rate 18 06/29/2019 9:05 PM LUNCHROOM MONITOR Oxygen Saturation 100% 06/29/2019 9:05 PM LUNCHROOM MONITOR Inhaled Oxygen Concentration - - Weight 79.4 kg (175 lb) 06/29/2019 9:05 PM LUNCHROOM MONITOR Height 175.3 cm (5' 9) 06/29/2019 9:05 PM LUNCHROOM MONITOR Body Mass Index 25.84 06/29/2019 9:05 PM LUNCHROOM MONITOR Plan of Treatment Health Maintenance Due Date Last Done Comments Colorectal Cancer Screening Colonoscopy (10 Years) 1950 Hepatitis C 1969 Pneumococcal Vaccine: 50+ Ye ars (1 of 2 - PCV) 1970 Zoster Vaccines (1 of 2) 2001 Annual Medicare Wellness Visit 2016 COVID-19 Vaccine (1 - 2024-2 6 season) 2025 Influenza Adult (#1) 2025 RSV Immunization or 60+ Years (1 - 1-dose 75+ series) 2026 DTaP, Tdap and Td Vaccines ( 2 - Td or Tdap) 07/14/2026 07/14/2016 Hepatitis A Vaccines Aged Out No long er eligible based on patient's age to complete this topic Meningococcal B Vaccine Aged Out No l onger eligible based on patient's age to complete this topic Meningococcal Vaccine Aged Out No yuly david eligible based on patient's age to complete this topic RSV Immunizations Under 20 Months Aged Out No longer eligible based on patient's age to complete this topic Insurance [facility] [place] [address] Care Teams Sap Portal Consultant Relationship Specialty Start Date End Date Sonido Rinaldi MD [address] [place] [address] PCP - General FAMILY PRACTICE 06/29/19
--- OUTSIDE RECORDS SUMMARY | 2025-04-19 00:50 | XMS_ITS | Clinical Summary ---
Author Organization [facility] Address [address] [place] [address] Care Team Providers Care Assembly Mechanic Name Role Phone Sonido Rinaldi MD Primary Care Provider Allergies No known active allergies Medications tamsulosin (FLOMAX) 0.4 mg extended release capsule Take 1 capsule (0.4 mg total) by mouth daily 10/12/2024 Active amLODIPine (NORVASC) 5 mg tablet Take 1 tablet (5 mg total) by mouth daily 11/08/2024 Active atorvastatin (LIPITOR) 20 mg tablet Take 1 tablet (20 mg total) by mouth nightly 12/13/2024 Active fluticasone propionate (FLONASE) 50 mcg/actuation nasal spray SHAKE LIQUID AND USE 1 SPRAY IN EACH NOSTRIL DAILY 10/29/2024 Active fluticasone/ume clidin/vilanter (TRELEGY ELLIPTA INHAL) Inhale Activ e Active Problems Problem Noted Date Diagnosed Date Bruit of left carotid artery 12/28/2024 Assessment & Plan (12/28/2024 11:57 AM CDT): Carotid duplex Peripheral vascular disease, unspecified 025 Assessment & Plan (12/23/2024 10:43 AM CDT): Moderate claudication of the right lower extremity with moderate occlusive disease and noninvasives testing. Discussed the importance of tobacco cessation as well as ambulation. Start 81 mg ASA. Continue statin therapy. Follow up in 6 months repeat noninvasives testing. Primary hypertension 12/23/2024 Assessment & Plan (12/23/2024 10:43 AM CDT): Stable continue amlodipine Mixed hyperlipidemia 12/23/2024 Assessment & Plan (12/23/2024 10:43 AM CDT): Stable continue Lipitor Encounters Date Type Department Care Team Description 01/27/2025 9:00 AM CDT Office Visit [facility] Vascular at [address] [address] Shannan Casarez PA Peripheral vascular disease, unspecified (Primary Dx); Mixed hyperlipidemia; Primary hypertension; Smoker; Bruit of left carotid artery 01/27/2025 Orders Only [facility] Vascular at [address] [address] Samuel Arshad MD PVD (peripheral vascular disease) (Primary Dx) 01/19/2025 11:00 AM CDT Ancillary Procedure [facility] Vascular and Vein Surgery at [address] [address] Right carotid bruit 01/18/2025 Telephone [facility] Vascular and Vein Surgery at [address] [address] Shawna Hernandez RDMS from Last 3 Months Social History Tobacco Use Types Packs/Day Years Used Date Smoking Tobacco: Every Day Cigarettes Tobacco Cessation:Ready to Q uit: Not Asked; Counseling Given: Not Answered Sex and Gender Information Value Date Recorded Sex Assigned at Not on file 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 Gender Identity Not on file Sexual Orientation Not on file Last Filed Vital Signs Vital Sign Reading Time Taken Comments Blood Pressure 157/75 01/27/2025 9:26 AM CDT Pulse 76 01/27/2025 9:26 AM CDT Temperature - - Respiratory Rate - - Oxygen Saturation 99% 01/27/2025 9:26 AM CDT Inhaled Oxygen Concentration - - Weight 81.6 kg (180 lb) 01/27/2025 9:26 AM CDT Height 177.8 cm (5' 10) 01/27/2025 9:26 AM CDT Body Mass Index 25.83 01/27/2025 9:26 AM CDT Plan of Treatment Health Maintenance Due Date Last Done Comments Colon Cancer Screening-Colonoscopy 1950 Depression Screening 1950 Fall Risk Assessment 1950 Hepatitis C Screening 1950 Hepatitis B Screening 1969 Zoster Vaccine (1 of 2) 2001 Abdominal Aortic Aneurysm (A AA) Screen 2016 Well Visit 65+ 2016 Covid-19 Vaccine (6 - 2024-2 6 season) 2025 02/15/2024, 09/01/2021, 03/25/2021, Additional history exists Influenza Vaccine (#1) 2025 02/15/2024, 2020 DTaP/Tdap/Td Vaccine (3 - Td or Tdap) 04/17/2034 04/17/2024, 07/14/2016 Pneumococcal vaccine 65+ Completed 05/22/2024 Procedures Procedure Name Priority Date/Time Associated Diagnosis Comments US CAROTIDS DUPLEX BILATERAL Schedule Routine, Read Routine (OP Routine) 01/19/2025 11:22 AM CDT Right carotid bruit from Last 3 Months Results * US Carotids Duplex Bilateral (01/19/2025 11:22 AM CDT) Anatomical Region Laterality Modality Vascular Bilateral Ultrasound 01/19/2025 10:5 4 AM CDT Narrative 01/20/2025 2:23 PM CDT Vascular & Vein Surgery [address] [facility] [place] [address] Carotid Duplex Ultrasound Report Patient Name: SARAH PARMAR : 1950 (74y 10m) Study Date: 01/19/2025 10:54:34 AM Sex: M County Director Welfare: WAN Location: [facility] Ref Provider: SAMUEL ARSHAD Quality: Adequate Order Provider: SAMUEL ARSHAD PROCEDURES: Carotid Report: Carotid duplex examination of the extracranial arteries was performed using 2D, color and spectral Doppler. INDICATIONS: Left sided bruit. HISTORY: HTN. HLD. Current smoker. COMPARISONS: No previous exams. MEASUREMENTS: Right Value Left Value RT Prox CCA PSV 88 cm/sec LT Prox CCA PSV 89 cm/sec RT Prox CCA EDV 9 cm/sec LT Prox CCA EDV 13 cm/sec RT Distal CCA PSV 58 cm/sec LT Distal CCA PSV 48 cm/sec RT Distal CCA EDV 12 cm/sec LT Distal CCA EDV 9 cm/sec RT Prox ICA PSV 51 cm/sec LT Prox ICA PSV 54 cm/sec RT Prox ICA EDV 15 cm/sec LT Prox ICA EDV 13 cm/sec RT Mid ICA PSV 56 cm/sec LT Mid ICA PSV 78 cm/sec RT Mid ICA EDV 22 cm/sec LT Mid ICA EDV 19 cm/sec RT Distal ICA PSV 41 cm/sec LT Distal ICA PSV 66 cm/sec RT Distal ICA EDV 13 cm/sec LT Distal ICA EDV 17 cm/sec RT ECA Prx PSV 72 cm/sec LT ECA Prx PSV 73 cm/sec RT ICA/CCA 0.97 ratio LT ICA/CCA 1.62 ratio Rt Vert Dst PSV 49 cm/sec Lt Vert Dst PSV 65 cm/sec FINDINGS: Rt Common Carotid Artery: The plaque in the right CCA appears to be homogenous. Rt Internal Carotid Artery: The plaque in the right internal carotid artery appears to be heterogeneous and smooth. Atherosclerotic changes of the right internal carotid artery without hemodynamically significant Doppler findings. <50% stenosis. Rt External Carotid Artery: The right external carotid artery is patent without evidence of atherosclerotic plaque. Rt Vertebral Artery: The right vertebral artery is patent with antegrade flow. Lt Common Carotid Artery: The plaque in the left CCA appears to be homogenous. Lt Internal Carotid Artery: The plaque in the left internal carotid artery appears to be heterogeneous and smooth. Atherosclerotic changes of the left internal carotid artery without hemodynamically significant Doppler findings. <50% stenosis. Lt External Carotid Artery: Patent left external carotid artery with evidence of atherosclerotic disease present. Lt Vertebral Artery: The left vertebral artery is patent with antegrade flow. Comments: Brachial artery systolic blood pressure is 155 on the right, 166 on the left. CONCLUSIONS: 1. No evidence of hemodynamically significant disease of the bilateral extracranial carotid system. 2. Normal, antegrade flow is noted in bilateral vertebral arteries. ATTESTATION: I have reviewed and interpreted the pertinent images and measurements of this study. I attest to the conclusions in the final report that is provided above. Electronically Signed By: Samuel Arshad MD 01/20/2025 1:53:48 PM CDT Procedure Note Samuel Arshad MD - 01/20/2025 Vascular & Vein Surgery [address] [place] [id number] Carotid Duplex Ultrasound Report Patient Name: SARAH PARMAR : 1950 (74y 10m) Study Date: 01/19/2025 10:54:34 AM Sex: M County Director Welfare: Location: [facility] Ref Provider: SAMUEL ARSHAD Quality: Adequate Order Provider: SAMUEL ARSHAD PROCEDURES: Carotid Report: Carotid duplex examination of the extracranial arterieswas performed using 2D, color and spectral Doppler. INDICATIONS: Left sided bruit. HISTORY: HTN. HLD. Current smoker. COMPARISONS: No previous exams. MEASUREMENTS: Right Value Left Value RT Prox CCA PSV 88 cm/sec LT Prox CCA PSV 89 cm/sec RT Prox CCA EDV 9 cm/sec LT Prox CCA EDV 13 cm/sec RT Distal CCA PSV 58 cm/sec LT Distal CCA PSV 48 cm/sec RT Distal CCA EDV 12 cm/sec LT Distal CCA EDV 9 cm/sec RT Prox ICA PSV 51 cm/sec LT Prox ICA PSV 54 cm/sec RT Prox ICA EDV 15 cm/sec LT Prox ICA EDV 13 cm/sec RT Mid ICA PSV 56 cm/sec LT Mid ICA PSV 78 cm/sec RT Mid ICA EDV 22 cm/sec LT Mid ICA EDV 19 cm/sec RT Distal ICA PSV 41 cm/sec LT Distal ICA PSV 66 cm/sec RT Distal ICA EDV 13 cm/sec LT Distal ICA EDV 17 cm/sec RT ECA Prx PSV 72 cm/sec LT ECA Prx PSV 73 cm/sec RT ICA/CCA 0.97 ratio LT ICA/CCA 1.62 ratio Rt Vert Dst PSV 49 cm/sec Lt Vert Dst PSV 65 cm/sec FINDINGS: Rt Common Carotid Artery: The plaque in the right CCA appears to behomogenous. Rt Internal Carotid Artery: The plaque in the right internal carotidartery appears to be heterogeneous and smooth. Atherosclerotic changes of the right internalcarotid artery without hemodynamically significant Doppler findings. <50% stenosis. Rt External Carotid Artery: The right external carotid artery is patentwithout evidence of atherosclerotic plaque. Rt Vertebral Artery: The right vertebral artery is patent with antegradeflow. Lt Common Carotid Artery: The plaque in the left CCA appears to behomogenous. Lt Internal Carotid Artery: The plaque in the left internal carotid arteryappears to be heterogeneous and smooth. Atherosclerotic changes of the left internalcarotid artery without hemodynamically significant Doppler findings. <50% stenosis. Lt External Carotid Artery: Patent left external carotid artery withevidence of atherosclerotic disease present. Lt Vertebral Artery: The left vertebral artery is patent with antegradeflow. Comments: Brachial artery systolic blood pressure is 155 on the right, 166on the left. CONCLUSIONS: 1. No evidence of hemodynamically significant disease of the bilateralextracranial carotid system. 2. Normal, antegrade flow is noted in bilateral vertebral arteries. ATTESTATION: I have reviewed and interpreted the pertinent images and measurements ofthis study. I attest to the conclusions in the final report that is provided above. Electronically Signed By: Samuel Arshad MD 01/20/2025 1:53:48 PM CDT Samuel Arshad MD IM US PROCEDURES Final Result from Last 3 Months Insurance [facility] MEDICARE ADVANTAGE [facility] Address: [facility] [address] [place] [address] Care Teams Assembly Mechanic Relationship Specialty Start Date End Date Sonido Rinaldi MD [address] [facility] [address] [place] [address] PCP - General Family Medicine 12/10/24
--- OUTSIDE RECORDS SUMMARY | 2025-04-19 00:50 | XMS_ITS | Clinical Summary ---
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 Gender Identity Not on file Sexual Orientation Not on file Plan of Treatment Health Maintenance Due Date Last Done Comments Hepatitis C Virus (HCV) Screening 1950 TdaP Immunization 1950 Cologuard 1996 Colonoscopy 1996 Colorectal Cancer Screening 1996 Immunochemical Fecal Occult Blood 1996 Pneumococcal Immunization (5 0+ years) (1 of 1 - PCV) 2001 Zoster Immunization (1 of 2) 2001 Influenza Immunization (#1) 2025 03/10/2021 SARS-COV-2 Immunization ( - season) 2025 03/25/2021, 08/06/2020, 07/09/2020 Respiratory Syncytial Virus (RSV) Immunization (Adult) (1 - 1-dose 75+ series) 2026 Hepatitis B Immunization Aged Out No longer eligible based on patient's age to complete this topic Human Papillomavirus (HPV) Immunization Aged Out No longer eligible b ased on patient's age to complete this topic Meningococcal Immunization (ACWY) Aged Out No longer eligible b ased on patient's age to complete this topic Rotavirus Immunization Aged Out No lo nger eligible based on patient's age to complete this topic
--- OUTSIDE RECORDS SUMMARY | 2025-04-19 00:50 | XMS_ITS | Clinical Summary ---
Author Organization [facility] Address [address] [place] [address] Care Team Providers Care Machine Set Up Technician Name Role Phone Sonido Rinaldi MD Primary Care Provider [phone] Source Comments [facility],non-owned Affiliates and Associated Physician Practices is amultiple site organization consisting of ambulatory clinics and hospital sitesin [place], [place], [place] and [place]. This disclosure is being madepursuant to the Care Everywhere program and may not contain all information available regarding this patient. Last updated 18.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 Gender Identity Not on file Sexual Orientation Not on file Last Filed Vital Signs Vital Sign Reading Time Taken Comments Blood Pressure 141/81 07/14/2016 5:29 AM CARBURETOR EXPERT Pulse 85 07/14/2016 5:29 AM CARBURETOR EXPERT Temperature 36.4 C (97.6 F) 07/14/2016 5:29 AM CARBURETOR EXPERT Respiratory Rate 18 07/14/2016 5:29 AM CARBURETOR EXPERT Oxygen Saturation 100% 07/14/2016 5:29 AM CARBURETOR EXPERT Inhaled Oxygen Concentration - - Weight 81.6 kg (180 lb) 07/14/2016 2:31 AM CARBURETOR EXPERT Height 175.3 cm (5' 9) 07/14/2016 2:31 AM CARBURETOR EXPERT Body Mass Index 26.58 07/14/2016 2:31 AM CARBURETOR EXPERT Plan of Treatment Health Maintenance Due Date [...] LIPID TESTING 10/14/2013 10/14/2008 AAA SCREENING 2016 DEPRESSION SCREENING 05/27/2024 COVID-19 VACCINE (1 - 2024-2 6 season) 2025 INFLUENZA VACCINE (#1) 2025 Respiratory Syncytial Virus [...] PM CDT Narrative Resulting Agency Comment [facility] [address] [facility] [id number] Gualberto Mock DO LAB - CHEMISTRY ORDERABLES Fin al Result [facility] ACCOUNT BILL [address] [place] [address] from Last 3 Months or Most Recently Relevant to Health Maintenance Insurance [facility] MANAGED MEDICARE ADV MANAGED MEDICARE ADV TPL THIRD LIBERTARIAN LIABILITY Member Subscriber Plan / Payer (Ef fective for All Dates) Name:Parmar Sarah Member ID:[id number] Relation to Subscriber:Self Name:Sarah Parmar Subscriber ID:[id number] Payer ID:Not on file Group ID:Not on file Type:Third Green Party Liability [facility] MANAGED MEDICARE ADV Care Teams Machine Set Up Technician Relationship Specialty Start Date End Date Sonido Rinaldi MD [address] [place] [address] PCP - General Family Medicine 07/14/16
[2025-04-19 09:35] VITALS: BP 144/76; PULSE 61; RESP 18; TEMP 36.6; O2SAT 100
[2025-04-19] MEDS: LACTATED RINGERS 1,000 ML 150 ML IV CONT (09:48)
--- NOTE | 2025-04-19 10:12 | WPDANESEPPF ---
Anes - Initial Pre Proc Eval Procedure: Operation Date: 04/19/25 11:00 Proposed Procedures p Screening Colonoscopy - Александр Sousa MD Date/Time: 04/19/25 10:12 Surgeon: Александр Sousa MD Pre Op Diagnosis: Screening Patient Data Age: 75 Gender: M Height: 1.78 m Weight: 81 kg Last Vital Signs Temp 98 F 04/19/25 09:35 Pulse 61 04/19/25 09:35 Resp 18 04/19/25 09:35 BP 144/76 H 04/19/25 09:35 Pulse Ox 100 04/19/25 09:35 O2 Del Method Room Air 04/19/25 09:35 Allergies Allergy/AdvReac Type Severity Reaction Status Date / Time iodine Allergy Unknown Nausea and Verified 04/19/25 09:34 Vomiting shellfish derived Allergy Unknown Nausea and Verified 04/19/25 09:34 Vomiting SHELLFISH Allergy Mild Nausea and Uncoded 10/12/24 10:13 Vomiting Home Medications ?Medication ?Instructions ?Recorded ?Confirmed ?Type fexofenadine 180 mg tablet 180 mg PO DAILY #30 tabs 04/01/19 04/07/25 Rx (Nayeli Allergy) albuterol sulfate 90 mcg/actuation 1 inh inhalation QID PRN shortness 04/09/24 04/07/25 Rx aerosol inhaler of breath or wheezing #6.7 grams budesonide 160 mcg-glycopyr 9 2 inh inhalation BID #10.7 grams 04/13/24 04/07/25 Rx mcg-formot 4.8 mcg/actuation HFA inhaler (Breztri Aerosphere) amlodipine 5 mg tablet 5 mg PO DAILY #90 tabs 09/15/24 04/07/25 Rx atorvastatin 20 mg tablet See Rx Instructions .Route 09/15/24 04/07/25 Rx .COMPLEX #90 tabs fluticasone propionate 50 See Rx Instructions .Route 10/29/24 04/07/25 Rx mcg/actuation nasal .COMPLEX #16 grams spray,suspension aspirin 81 mg tablet,delayed 81 mg PO DAILY 04/07/25 04/07/25 History release (Adult Aspirin Regimen) tamsulosin 0.4 mg capsule (Flomax) 0.4 mg PO DAILY #30 caps 04/09/25 Rx Patient hx anesthesia problems: none Family hx anesthesia problems: none Results Review: All pre-operative results and documents have been reviewed as part of the pre-operative evaluation. [facility] Past Medical History Medical History Nicotine dependence BPH loc w urin obs/LUTS COPD (chronic obstructive pulmonary disease) BPH loc w/o ur obs/LUTS Positive PPD Allergic rhinitis Essential hypertension Pure hypercholesterolemia Surgical History Surgical History Status post hernia repair History of sinus surgery Family History Family History Mother Hypertension Sibling Family history of diabetes mellitus in first degree relative Social History Social History Social History: enjoys playing golf Years smoked: 30 Smoking status: Current every day smoker Tobacco type: cigarettes Second hand tobacco smoke exposure: Yes Alcohol intake: never Substance use: never Substance use type: does not use Living arrangements: with family Additional living arrangements comments: Lived in [place] for several years before moving back August 2023 Occupation/Education: occupation 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 ) Neurological: alert and oriented Last oral intake: >/= 8 hours ASA classification: III Emergent: no Anesthetic plan: proceed Anesthesia type and monitoring: general GIVS and standard monitoring Results Review: All pre-operative results and documents have been reviewed as part of the pre-operative evaluation. HTN, hyperlipidemia, COPD w prev smoking. Informed Consent: The patient's anesthetic plan and its attendant risks and benefits were discussed with the patient/family/POA. Questions were solicited and answers provided to the satisfaction of the patient/family/POA.
--- NOTE | 2025-04-19 10:17 | PM.IMHP ---
H&P: HPI History of Present Illness Date/Time: 04/19/25 10:17 Chief Complaint: Screening colonoscopy Narrative: This is the patient's 2nd screening colonoscopy. There are no GI symptoms and there is no family history of colorectal cancer. Review of Systems Review of Systems: All systems reviewed & are unremarkable except as noted in HPI and below PMFSH Past Medical History Medical History Nicotine dependence BPH loc w urin obs/LUTS COPD (chronic obstructive pulmonary disease) BPH loc w/o ur obs/LUTS Positive PPD Allergic rhinitis Essential hypertension Pure hypercholesterolemia Surgical History Surgical History Status post hernia repair History of sinus surgery Family History Family History Mother Hypertension Sibling Family history of diabetes mellitus in first degree relative Social History Social History Social History: enjoys playing golf Years smoked: 30 Smoking status: Current every day smoker Tobacco type: cigarettes Second hand tobacco smoke exposure: Yes Alcohol intake: never Substance use: never Substance use type: does not use Living arrangements: with family Additional living arrangements comments: Lived in [place] for several years before moving back August 2023 Occupation/Education: occupation 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 Gender identity (if verbalized by the patient): Male Sexual Orientation (if Verbalized by the Patient): Straight or Heterosexual Spiritual care concerns: No Meds Home Medications and Allergies Home Medications ?Medication ?Instructions ?Recorded ?Confirmed ?Type fexofenadine 180 mg tablet 180 mg PO DAILY #30 tabs 04/01/19 04/07/25 Rx (Nayeli Allergy) albuterol sulfate 90 mcg/actuation 1 inh inhalation QID PRN shortness 04/09/24 04/07/25 Rx aerosol inhaler of breath or wheezing #6.7 grams budesonide 160 mcg-glycopyr 9 2 inh inhalation BID #10.7 grams 04/13/24 04/07/25 Rx mcg-formot 4.8 mcg/actuation HFA inhaler (Breztri Aerosphere) amlodipine 5 mg tablet 5 mg PO DAILY #90 tabs 04/22/25 11/12/25 Rx atorvastatin 20 mg tablet See Rx Instructions .Route 09/15/24 04/07/25 Rx .COMPLEX #90 tabs fluticasone propionate 50 See Rx Instructions .Route 10/29/24 04/07/25 Rx mcg/actuation nasal .COMPLEX #16 grams spray,suspension aspirin 81 mg tablet,delayed 81 mg PO DAILY 04/07/25 04/07/25 History release (Adult Aspirin Regimen) tamsulosin 0.4 mg capsule (Flomax) 0.4 mg PO DAILY #30 caps 04/09/25 Rx Allergies Allergy/AdvReac Type Severity Reaction Status Date / Time iodine Allergy Unknown Nausea and Verified 04/19/25 09:34 Vomiting shellfish derived Allergy Unknown Nausea and Verified 04/19/25 09:34 Vomiting SHELLFISH Allergy Mild Nausea and Uncoded 10/12/24 10:13 Vomiting Vital Signs Vital Signs - 24 hr 04/19/25 09:35 Temperature 98 F Pulse Rate 61 Respiratory Rate 18 Blood Pressure 144/76 H Pulse Oximetry 100 Oxygen Delivery Room Air Exam Const: General: cooperative and healthy appearing Resp: Effort & Inspection: normal respiratory effort and able to speak in complete sentences Auscultation: clear to auscultation bilaterally Cardio: Rate: regular rate Rhythm: regular rhythm GI: Inspection: normal to inspection GI Palp: No No hepatosplenomegaly present Auscultation: normal bowel sounds Rectal Exam: deferred Skin: General skin exam: normal color Psych: Appearance: grossly normal Mental Status: mental status grossly normal Assessment and Plan Assessment and plan (1) Encounter for screening colonoscopy: Code(s): Z12.11 - Encounter for screening for malignant neoplasm of colon Status: Acute Assessment and Plan: The patient is deemed a good candidate for the procedure. Consent signed. Will proceed.
--- NOTE | 2025-04-19 10:37 | S_PTH ---
PATIENT: Rodolfo Smith LOC: [place] U#:[id number] AGE/SX: 75/M ROOM: RE04/19/[address]: Александр Sousa MD : 1950 BED: DIS: 04/19/2025 SPEC #: [id number] RECD: 04/19/25 11:41 STATUS: SHANIKA REQ #: [id number] MARY: 04/19/25 10:[address]: Александр Sousa DEPT: [facility] Surgical RECD BY: Delmi Nix ENTERED: 04/19/25 11:42 SP TYPE: Surgical OTHR DR: Sonido Rinaldi MD Tissues: A - Colon Polypectomy Procedures: Hematoxylin and Eosin Stain Gross and Microscopic Level 4
[2025-04-19 10:43] VITALS: BP 138/74; PULSE 56; RESP 15; O2SAT 99
[2025-04-19 10:53] VITALS: BP 151/79; PULSE 58; RESP 20; O2SAT 100
[2025-04-19 11:03] VITALS: BP 167/83; PULSE 59; RESP 17; O2SAT 100
== END 2025-04-19 11:11 | disposition home or self-care (01) ==
PROVIDERS: PCP Family Medicine; Referring Provider Family Medicine; Visit Provider Internal Medicine Gastroenterology
PROC: 0DJD8ZZ Inspection of Lower Intestinal Tract, Via Natural or Artificial Opening Endoscopic (ICD-10-PCS; CPT 45378; principal; 2025-04-19 11:00)
DX: Z12.11 Encounter for screening for malignant neoplasm of colon (principal); D12.5 Benign neoplasm of sigmoid colon; K57.30 Diverticulosis of large intestine without perforation or abscess without bleeding; F17.210 Nicotine dependence, cigarettes, uncomplicated
CPT/HCPCS: 45385; 88305; J2003; J2704; J7120

== ENCOUNTER 2025-05-13 10:35 | Outpatient (CLI) | payer MEDICARE, SELFPAY ==
--- OUTSIDE RECORDS SUMMARY | 2025-05-13 11:31 | XMS_ITS | Clinical Summary ---
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
--- OUTSIDE RECORDS SUMMARY | 2025-05-13 11:31 | XMS_ITS | Clinical Summary ---
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 [address] [place] [address] PCP - General Family Medicine 12/10/24
[2025-05-13 12:37] LABS: Influenza A QL RT-PCR Negative (Negative); Influenza B QL RT-PCR Negative (Negative); SARS-CoV-2 RNA PCR Negative (Negative)
[2025-05-13 12:38] LABS: RSV RNA, RT-PCR Negative (Negative)
== END 2025-05-13 10:36 | disposition home or self-care (01) ==
PROVIDERS: PCP Family Medicine; Visit Provider Student in an Organized Health Care Education/Training Program
DX: U07.1 COVID-19 (principal)
CPT/HCPCS: 87637